=== PATIENT | male | born 1975 | race African-American/Black ===

== ENCOUNTER 2020-04-16 23:54 | Emergency (ER) | payer BC, MEDICAID, SELFPAY ==
[2020-04-16 23:55] VITALS: BP 177/101; PULSE 67; RESP 14; TEMP 36.7; O2SAT 99; BMI 27.4
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
[2020-04-17] MEDS: Enoxaparin 80 MG/0.8 ML Syringe SC (00:32)
[2020-04-17 00:37] VITALS: BP 166/101
== END 2020-04-17 00:39 | disposition home or self-care (01) ==
LOC: ED 04-17 00:18
PROVIDERS: Emergency Provider Emergency Medicine
DX: R60.0 Localized edema (principal); F17.200 Nicotine dependence, unspecified, uncomplicated; Z86.718 Personal history of other venous thrombosis and embolism
CPT/HCPCS: 96372; 99282

== ENCOUNTER → 2020-04-18 10:40 | Outpatient (CLI) | payer BC, MEDICAID, SELFPAY ==
[2020-04-16 23:55] VITALS: BMI 27.4
--- NOTE | 2020-04-18 10:47 | VDLE_ITS ---
Reason For Study: RLE swelling RIGHT GSV is normal. PTV is compressible. RT PerV is compressible. CFV, FV, POP V, T/P TRUNK & SOLEUS V are DILATED AND NONCOMPRESSIBLE C/W ACUTE DVT. Gastrocnemius V is compressible. Procedure Exam performed in department. The study was technically difficult. A preliminary report was called and/or faxed to ED, PT taken to ED for treatment. Images # 12 & 13 are of the deep profunda vein proximal segment. Interpretation Summary Acute deep vein thrombosis is noted in the right common femoral vein. Acute deep vein thrombosis is noted in the right femoral vein. Acute deep vein thrombosis is noted in the right popliteal vein. Acute deep vein thrombosis is noted in the right tibio-peroneal trunk. Acute deep vein thrombosis is noted in the right soleus vein. The remainder of the right lower extremity deep venous system is patent and compressible. The right great saphenous vein appears patent and compressible segmentally. Ordering Physician: Divine Evans Referring Physician: NO PCP Performed By: Rochelle Ruano, ERICKA, RVT
== END ==
PROVIDERS: Visit Provider Emergency Medicine
DX: M79.89 Other specified soft tissue disorders (principal)
CPT/HCPCS: 93971

== ENCOUNTER 2020-04-18 11:21 | Emergency (ER) | payer BC, MEDICAID, SELFPAY ==
[2020-04-18 11:21] VITALS: BP 147/99; PULSE 89; RESP 16; TEMP 36.7; O2SAT 99; BMI 27.0
--- NOTE | 2020-04-18 11:43 | ED.VIS.GEN ---
History of Present Illness Chief Complaint: Lower Extremity Injury Informant: Patient Onset: Weeks - 1 Context: Gradual Onset Timing: Continuous Quality: sore Location: R calf Current Severity: Mild Maximum Severity: Mild Worsened by: nothing Relieved by: nothing Associated Symptoms: swelling in RLE Narrative: Patient recently here for leg pain and swelling and had an outpatient ultrasound that was done this morning, it shows DVT that appears acute within several veins of the right lower extremity including the common femoral vein, he was sent to the ER which is out of where the test was ordered. Patient states he has a PCP, but he does not remember who it is. He denies having any chest pain, shortness of breath, palpitations, dizziness or unexplained near syncope/syncope. He has had no recent travel or immobilization or obvious reason for the DVT except for the history of 1 in that leg in the past. Prior similar symptoms: Yes - dvt Recent Illness/Hospitalization: No - Past Medical History (1) Right leg DVT Status: Suspected (2) Tetralogy of Fallot Status: Resolved Past Medical History - Allergies and Home Meds Allergies/Adverse Reactions: Allergies No Known Allergies Allergy (Verified 04/18/20 11:21) Primary Care Physician: Doctor,Your [STAFF PHYSICIAN] - (make an appt to be seen within the next month; return to ER for any new acute problems, such as chest pain or trouble breathing.) Smoking Status: Current every day smoker Review of Systems General: Denies: Chills, Fever, Sweats Eyes: Denies: Visual changes - bilaterally, Diplopia ENT: Denies: Rhinorrhea, Sore throat Cardiovascular: Denies: Chest pain, Palpitations Respiratory: Denies: Dyspnea, Cough, Dyspnea on exertion Gastrointestinal: Denies: Abdominal pain, Nausea, Vomiting, Diarrhea, Melena, Hematochezia Genitourinary: Denies: Dysuria, Hematuria, Frequency Musculoskeletal: Reports: Swelling, Extremity Pain. Denies: Back pain Skin: Denies: Rash, Wounds Neurological: Denies: Headache, Weakness, Numbness Physical Exam Vital Signs/Narrative: Vital Signs Temp Pulse Resp BP Pulse Ox 04/18/20 11:21 98.1 F 89 16 147/99 H 99 Inital Vital Signs reviewed: Yes General: Well nourished, Well developed, No Acute Distress - Well-appearing, no distress, conversive in full sentences Head: Normocephalic, Atraumatic Neck: Supple, - - FROM Respiratory: No distress Extremities: Edema - 1+ pitting right cade only; none on left, Calf Tenderness - mild right Skin: Normal color, No rash, No Trauma Neurological: Alert, Oriented x3, Cranial nerves II-XII grossly intact, Normal Strength, Normal Sensation, Normal Gait Psychological: Normal affect, Normal Mood Diagnostic/Tx/Re-eval - Medical Decision Making I discussed treatment with patient at length. I discussed needing a PCP to follow-up with, he states he has one but does not remember who it is. He states he has information at home. He was advised that he will need to follow-up within a month so that he can be reevaluated and get appropriate new prescription for anticoagulant which we will place him on today. I advised him that he needs to be anticoagulated as soon as possible to prevent getting a pulmonary embolus which she has no symptoms of at this time. Furthermore vital signs are stable without tachycardia or hypoxemia. He declares understanding of this. Since it is still morning, and he has insurance to cover one of the new NOACs, I recommend starting the prescription as soon as possible, if we gave him a pill here and he started the prescription tonight then at the end of the first week it becomes confusing switching from twice daily dosing to once daily. He understood this as well, and stated that if I gave him the prescription now he would fill it as soon as possible and take the first dose soon as possible. Therefore I did not give him anything here, he understands the risks of not taking the medication and having his DVT travel to his lung. Prescribed apixaban and given enough for the first month. ED Disposition - Plan for ED Patient: Disposition: Home or Assisted Living Diagnosis: Right leg DVT Instructions: ED DVT Prescriptions: Apixaban [Eliquis] 5 mg PO BID #74 tab Prescription Printed Referrals: Doctor,Your [STAFF PHYSICIAN] - (make an appt to be seen within the next month; return to ER for any new acute problems, such as chest pain or trouble breathing.) Additional Instructions: Fill your prescription today and take the first pill as soon as possible, so that you get both doses in today.
== END 2020-04-18 11:53 | disposition home or self-care (01) ==
LOC: ED 11:49
PROVIDERS: Emergency Provider Emergency Medicine
DX: I82.401 Acute embolism and thrombosis of unspecified deep veins of right lower extremity (principal); F17.200 Nicotine dependence, unspecified, uncomplicated
CPT/HCPCS: 99282